=== PATIENT | male | born 1945 ===

== ENCOUNTER 2018-07-03 07:18 | Outpatient (CLI) | payer OTHER | END 2018-07-03 07:26 | disposition home or self-care (01) | LOC: NUCLEAR 07:18 | DX: I20.0 Unstable angina (principal); I25.10 Atherosclerotic heart disease of native coronary artery without angina pectoris; E78.2 Mixed hyperlipidemia; I11.9 Hypertensive heart disease without heart failure | CPT/HCPCS: 78452; 93017; A9500 ==